=== PATIENT | female | born 1975 | race Two or more races ===

== ENCOUNTER 2016-07-01 11:31 | Emergency (ER) | payer OTHER ==
[2016-07-01 12:01] VITALS: BMI 26.9
[2016-07-01 15:19] VITALS: BP 130/85; PULSE 81; TEMP 97.8
[2016-07-01 16:41] LABS: BASOPHIL 0.3 % (0-2.0); EOSINOPHIL 1.1 % (0-4.5); MCHC 32.9 g/dl (32.0-36.0); MEAN CELL VOLUME 85.4 fl (80-96); MEAN PLT VOLUME 7.4 fl (7.5-11.1); NEUTROPHILS 65.8 % (42.8-82.8); PLATELET COUNT 302 K/MM3 (134-434); RDW 13.3 % (11.6-15.6); WHITE BLOOD COUNT 9.1 K/mm3 (4.0-10.0)
[2016-07-01 16:45] LABS: URINE APPEARANCE CLEAR; URINE BILIRUBIN NEGATIVE (NEGATIVE); URINE BLOOD NEGATIVE (NEGATIVE); URINE COLOR YELLOW; URINE GLUCOSE (UA) NEGATIVE (NEGATIVE); URINE KETONE NEGATIVE (NEGATIVE); URINE LEUK ESTERASE NEGATIVE (NEGATIVE); URINE NITRITE NEGATIVE (NEGATIVE); URINE PROTEIN NEGATIVE (NEGATIVE); URINE UROBILINOGEN NEGATIVE E.U./dl (0.2-1.0)
--- NOTE | 2016-07-01 16:45 | PDOC ---
History of Present Illness - General History Source: Patient Exam Limitations: No Limitations - History of Present Illness Initial Comments: 07/01/16 16:52 The patient is a 41-year-old woman, accompanied by friend, with a past medical history of ovarian cysts and bladder infections who presents to the emergency department via walk-in for further evaluation of abdominal pain. Patient states that her pain is located on the left lower quadrant which started as a slight discomfort but had progressed into pain, described as a throbbing-pinching sensation. She states that her pain is intermittent (worse lasting several hours ; with a 7/10 in severity) and radiates to her left flank. She admits experiencing similar symptoms in the past, for which she took pain medications and rested, which helped resolved. She has been evaluated and was informed that her pain is due to ovarian cysts. She states that she typically experiences these pains twice a year. Today, she notes that her pain is associated with chills, dysuria, described as a burning sensation, urinary frequency and nocturia. She denies that her current symptoms are similar to her past history of bladder infections. She denies nausea, vomiting, diarrhea, hematuria, urinary urgency, foul smelling urine, vaginal discharge/vaginal bleeding She denies fever, diaphoresis, generalized weakness. She denies chest pain, shortness of breath, cough Allergies: None Known Social History: Current everyday cigarette smoker. No ETOH and recreational drug use. Primary Care Physician: Dr. Jose Karimi [phone] <Purvi Montelongo - Last Filed: 07/01/16 16:53> <Bud Dawkins - Last Filed: 07/01/16 17:10> <Ricky Oakes - Last Filed: 07/01/16 23:31> - General Chief Complaint: Pain Stated Complaint: LT SIDE ABD PAIN,N Time Seen by Provider: 07/01/16 14:54 Past History <Purvi Montelongo - Last Filed: 07/01/16 16:53> - Past Medical History Asthma: Yes - Psycho/Social/Smoking Cessation Hx Anxiety: No Suicidal Ideation: No Smoking Status: Yes Smoking History: Current some day smoker Have you smoked in the past 12 months: Yes Number of Cigarettes Smoked Daily: 2 Information on smoking cessation initiated: Yes 'Breaking Loose' booklet given: 07/01/16 Hx Alcohol Use: No Drug/Substance Use Hx: No Substance Use Type: None <Bud Dawkins - Last Filed: 07/01/16 17:10> <Ricky Oakes - Last Filed: 07/01/16 23:31> - Past Medical History Allergies/Adverse Reactions: Allergies Allergy/AdvReac Type Severity Reaction Status Date / Time No Known Allergies Allergy Verified 07/01/16 11:58 Home Medications: Ambulatory Orders Ibuprofen [Motrin -] 600 mg PO QID PRN #28 tablet 07/01/16 Review of Systems - Review of Systems Able to Perform ROS?: Yes Comments:: 07/01/16 16:52 CONSTITUTIONAL: Reported: +Chills. No reported: Fever, Diaphoresis, Generalized Weakness, Malaise, Loss of Appetite HEENT: No reported: Rhinorrhea, Nasal Congestion, Throat Pain, Throat Swelling, Difficulty Swallowing, Mouth Swelling, Ear Pain, Eye Pain, Visual Changes CARDIOVASCULAR: No reported: Chest Pain, Syncope, Palpitations, Irregular Heart Rate, Lightheadedness, Peripheral Edema RESPIRATORY: No reported: Cough, Shortness of Breath, SOB with Exertion, Orthopnea, Wheezing , Stridor, Hemoptysis GASTROINTESTINAL: Reported: +Abdominal Pain. +Blood per rectum. No reported: Abdominal Distension , Nausea, Vomiting, Diarrhea, Constipation, Melena. GENITOURINARY: Reported: +Dysuria. +Frequency. +Flank Pain. No reported: Urgency, Hesitancy, Genital Pain MUSCULOSKELETAL: No reported: Myalgia, Arthralgia, Joint Swelling, Back pain, Neck Pain SKIN: No reported: Rash, Itching, Pallor HEMEATOLOGIC/IMMUNOLOGIC: No reported: Easy Bleeding, Easy Bruising, Lymphadenopathy, Frequent infections ENDOCRINE: No reported: Unexplained Weight Gain, Unexplained Weight Loss, Heat Intolerance , Cold Intolerance NEUROLOGIC: No reported: Headache, Focal Weakness, Paresthesias, Vertigo, Lightheadedness, Unsteady Gait, Seizure, Mental Status Changes, Incontinence PSYCHIATRIC: No reported: Anxiety, Depression <Purvi Montelongo - Last Filed: 07/01/16 16:53> *Physical Exam - Vital Signs Last Vital Signs Temp Pulse Resp BP Pulse Ox 97.8 F 81 18 130/85 98 07/01/16 15:17 07/01/16 15:17 07/01/16 15:17 07/01/16 15:17 07/01/16 15:17 - Physical Exam Comments: 07/01/16 16:53 GENERAL: The patient is awake, alert, and fully oriented, Nontoxic - in no acute distress. HEAD: Normocephalic, atraumatic. EYES: extraocular movements intact, sclera anicteric, conjunctiva clear. ENT: Normal voice, Moist mucous membranes. NECK: Normal range of motion, supple LUNGS: Breath sounds equal, clear to auscultation bilaterally. No wheezes, no rhonchi, no rales. HEART: Regular rate and rhythm, without murmur, rub or gallop. ABDOMEN: Soft, left lower suprapubic tenderness to palpation. Normoactive bowel sounds. No guarding, no rebound. No CVA tenderness EXTREMITIES: Normal range of motion, no edema. No clubbing or cyanosis. No cords , erythema, or tenderness. NEUROLOGICAL: No facial assymetry, Normal speech, PSYCH: Normal mood, normal affect. SKIN: Warm, Dry, normal turgor. <Purvi Montelongo - Last Filed: 07/01/16 16:53> - Vital Signs Last Vital Signs Temp Pulse Resp BP Pulse Ox 97.8 F 81 18 130/85 98 07/01/16 15:17 07/01/16 15:17 07/01/16 15:17 07/01/16 15:17 07/01/16 15:17 <Bud Dawkins - Last Filed: 07/01/16 17:10> - Vital Signs Last Vital Signs Temp Pulse Resp BP Pulse Ox 97.8 F 81 18 130/85 98 07/01/16 15:17 07/01/16 15:17 07/01/16 15:17 07/01/16 15:17 07/01/16 15:17 <Ricky Oakes - Last Filed: 07/01/16 23:31> Heart Score/ECG Review - ECG Impressions Comment:: 07/01/16 17:11 Twelve-lead EKG was performed and reviewed by me. There is normal sinus rhythm with a normal rate. Rate of 65 The axis is normal. The intervals are normal. There is normal R wave progression There are no ST or T wave abnormalities. Impression: Normal twelve-lead EKG <Bud Dawkins - Last Filed: 07/01/16 17:10> ED Treatment Course - LABORATORY CBC & Chemistry Diagram: 07/01/16 16:08 07/01/16 16:08 - ADDITIONAL ORDERS Additional order review: Laboratory Results 07/01/16 16:08 Urine Color Yellow Urine Appearance Clear Urine pH 5.0 Ur Specific [place] 1.023 Urine Protein Negative Urine Glucose (UA) Negative Urine Ketones Negative Urine Blood Negative Urine Nitrite Negative Urine Bilirubin Negative Urine Urobilinogen Negative Ur Leukocyte Esterase Negative 07/01/16 16:08 RBC 4.92 MCV 85.4 MCHC 32.9 RDW 13.3 MPV 7.4 L Neutrophils % 65.8 Lymphocytes % 28.0 D Monocytes % 4.8 D Eosinophils % 1.1 Basophils % 0.3 <Purvi Montelongo - Last Filed: 07/01/16 16:53> - LABORATORY CBC & Chemistry Diagram: 07/01/16 16:08 07/01/16 16:08 <Bud Dawkins - Last Filed: 07/01/16 17:10> - LABORATORY CBC & Chemistry Diagram: 07/01/16 16:08 07/01/16 16:08 - ADDITIONAL ORDERS Additional order review: Laboratory Results 07/01/16 07/01/16 16:08 16:08 Sodium 138 Potassium 4.1 D Chloride 101 Carbon Dioxide 28 Anion Gap 9 BUN 8 D Creatinine 0.7 Creat Clearance w eGFR > 60 Random Glucose 87 Calcium 9.3 Total Bilirubin 0.3 D AST 17 D ALT 25 D Alkaline Phosphatase 85 D Total Protein 7.7 Albumin 4.0 Lipase 107 Serum , Qual Negative Urine Color Yellow Urine Appearance Clear Urine pH 5.0 Ur Specific [place] 1.023 Urine Protein Negative Urine Glucose (UA) Negative Urine Ketones Negative Urine Blood Negative Urine Nitrite Negative Urine Bilirubin Negative Urine Urobilinogen Negative Ur Leukocyte Esterase Negative 07/01/16 16:08 RBC 4.92 MCV 85.4 MCHC 32.9 RDW 13.3 MPV 7.4 L Neutrophils % 65.8 Lymphocytes % 28.0 D Monocytes % 4.8 D Eosinophils % 1.1 Basophils % 0.3 - RADIOLOGY Radiology Studies Ordered: Category Date Time Status ABDOMEN & PELVIS CT W/O CONTR [CT] Stat CT Scan 07/01/16 21:25 Taken - Medications Given in the ED: ED Medications Discontinued Medications Generic Name Dose Route Start Last Admin Trade Name Luis PRN Reason Stop Dose Admin Ketorolac Tromethamine 30 mg 07/01/16 21:25 07/01/16 21:38 Toradol Injection - IVPUSH 07/01/16 21:26 30 mg ONCE ONE Administration <Ricky Oakes - Last Filed: 07/01/16 23:31> Medical Decision Making - Medical Decision Making 07/01/16 16:43 41y F hx of L ovarian cysts presents with LLQ pain that seems to wax and wane, associated with nausea, and mild dysyria. pain radiates to the back. on exam pt wiht mild LLQ tenderness on exam neg cva tenderness. exam otherwise uremarkable will obtain labs, ua, differential inclues kidney stones, uti,dioverticulosis, ovarian cysts, torsion if UA +hematuria will obtain CT, otherwise will start with US 07/01/16 17:10 UA negative for hematuria will start with US to r/o torsion will sign out to dr. Oakes to reasess the patient and fu with US - if pt persistently in pain will consider CT abdomen. CMP pending, pending <Bud Dawkins - Last Filed: 07/01/16 17:10> *DC/Admit/Observation/Transfer - Attestations Scribe Attestion: 07/01/16 16:53 Documentation prepared by Purvi Montelongo, acting as medical file clerk for Bud Dawkins MD. <Purvi Montelongo - Last Filed: 07/01/16 16:53> <Bud Dawkins - Last Filed: 07/01/16 17:10> - Discharge Dispostion Admit: No <Ricky Oakes - Last Filed: 07/01/16 23:31> Diagnosis at time of Disposition: Cyst of ovary - Discharge Dispostion Disposition: HOME Condition at time of disposition: Improved - Prescriptions Prescriptions: Ibuprofen [Motrin -] 600 mg PO QID PRN #28 tablet PRN Reason: Pain - Referrals Referrals: Jose Karimi MD [Primary Care Provider] - - Patient Instructions Printed Discharge Instructions: Ovarian Cyst Additional Instructions: follow up with your Order Picker/Assembler
[2016-07-01 17:17] LABS: ALK PHOS 85 U/L (45-117); ANION GAP 9 (8-16); BILIRUBIN,TOTAL 0.3 mg/dL (0.2-1.0); CALCIUM 9.3 mg/dL (8.5-10.1); CO2 28 mmol/L (21-32); CREATININE 0.7 mg/dL (0.55-1.02); GLUCOSE,RANDOM 87 mg/dL (74-106); SGOT/AST 17 U/L (15-37); SGPT/ALT 25 U/L (12-78); TOT PROT 7.7 g/dl (6.4-8.2)
[2016-07-01] MEDS ORDERED: KETOROLAC TROMETHAMINE 30 MG/1 ML VIAL IVPUSH ONE (21:25)
[2016-07-01] MEDS ORDERED: KETOROLAC TROMETHAMINE 30 MG/1 ML VIAL ONE (21:36)
--- NOTE | 2016-07-02 13:20 | EKG ---
Test Reason : Blood Pressure : / mmHG Vent. Rate : 065 BPM Atrial Rate : 065 BPM P-R Int : 134 ms QRS Dur : 084 ms QT Int : 416 ms P-R-T Axes : 019 006 022 degrees QTc Int : 432 ms NORMAL SINUS RHYTHM INCOMPLETE RBBB NO PREVIOUS ECGS AVAILABLE Confirmed by DONNA BLAS MD ([id number]) on 07/02/2016 1:20:28 PM Referred By: Confirmed By:DONNA BLAS MD
== END 2016-07-01 23:14 | disposition home or self-care (01) ==
LOC: JER 11:31
PROC: 3E0333Z Introduction of Anti-inflammatory into Peripheral Vein, Percutaneous Approach (ICD-10-PCS; principal; 2016-07-01)
DX: N83.209 Unspecified ovarian cyst, unspecified side (principal); F17.210 Nicotine dependence, cigarettes, uncomplicated
CPT/HCPCS: 36415; 74176-TC; 76856-TC; 80053; 81003; 83690; 84703; 85025; 93005; 93010; 96374; 99284-25